=== PATIENT | male | born 1965 | race American Indian/Alaskan Native ===

== ENCOUNTER 2018-07-16 14:43 | Inpatient (IN) | payer MEDICAID, OTHER ==
[2018-07-16 16:30] LABS: BASO # 0.1 K/uL (0.0-0.2); EOS # 0.1 K/uL (0.0-0.7); EOS % 1.5 % (0.0-4.0); HEMOGLOBIN 14.4 g/dL (12.0-18.0); LYMPH # 1.9 K/uL (1.0-4.3); LYMPH % 34.3 % (20.0-40.0); MEAN CELL VOLUME 89.1 fL (80.0-94.0); MEAN CORPUSCULAR HEMOGLOBIN 29.1 pg (27.0-31.0); MEAN CORPUSCULAR HGB CONC 32.7 g/dL (33.0-37.0); MEAN PLATELET VOLUME 9.8 fL (7.2-11.7); MONO # 0.5 K/uL (0.0-0.8); MONO % 9.8 % (0.0-10.0); NEUT # 2.9 K/uL (1.8-7.0); NEUT % 53.4 % (50.0-75.0); RBC 4.96 Mil/uL (4.40-5.90); RED CELL DISTRIBUTION WIDTH 13.8 % (11.5-14.5); WHITE BLOOD COUNT 5.4 K/uL (4.8-10.8)
[2018-07-16 16:45] LABS: ALB/GLOB RATIO 1.4 (1.0-2.1); ALBUMIN 4.6 g/dL (3.5-5.0); ALT/SGPT 20 U/L (21-72); AST/SGOT 40 U/L (17-59); BLOOD UREA NITROGEN 13 mg/dL (9-20); CALCIUM 9.6 mg/dl (8.6-10.4); GFR NON-AFRICAN AMERICAN > 60
[2018-07-16 18:04] LABS: URINE BILIRUBIN NEGATIVE (NEGATIVE); URINE BLOOD NEGATIVE (NEGATIVE); URINE CLARITY Clear (Clear); URINE COLOR Yellow (YELLOW); URINE GLUCOSE (UA) NORMAL (Normal); URINE LEUKOCYTE ESTERASE NEG Leu/uL (Negative); URINE PROTEIN NEGATIVE (NEGATIVE); URINE UROBILINOGEN NORMAL mg/dL (0.2-1.0)
--- NOTE | 2018-07-16 18:12 | C.PDOC ---
History Of Present Illness 53 y/o male comes in requesting detox from heroin. States he last used 14 bags 23 hours ago. Patient also occasionally use cocaine and smokes cigarettes. Patient has no physical complaints at this time. Chief Complaint (Nursing): Substance Abuse History Per: Patient History/Exam Limitations: no limitations Onset/Duration Of Symptoms: Days Current Symptoms Are (Timing): Still Present Past Medical History Reviewed: Historical Data, Nursing Documentation, Vital Signs Vital Signs: Last Vital Signs Temp 97.9 F 07/16/18 15:11 Pulse 74 07/16/18 15:11 Resp 18 07/16/18 15:11 BP 131/90 07/16/18 15:11 Pulse Ox 93 L 07/16/18 15:11 - Medical History PMH: HTN Denies: Diabetes, Hepatitis, HIV, Seizures, Sexually Transmitted Disease - [facility] Procedures DETOXIFICATION SERVICES FOR SUBSTANCE ABUSE TREATMENT (10/10/15) Family History: States: No Known Family Hx - Social History Hx Tobacco Use: Yes Hx Alcohol Use: Yes Hx Substance Use: Yes - Immunization History Hx Tetanus Toxoid Vaccination: Yes Hx Influenza Vaccination: Yes Hx Pneumococcal Vaccination: Yes Review Of Systems Except As Marked, All Systems Reviewed And Found Negative. Constitutional: Negative for: Fever, Chills Gastrointestinal: Negative for: Nausea, Vomiting Psych: Positive for: Other (heroin abuse) Physical Exam - Physical Exam Appears: Non-toxic, No Acute Distress Skin: Warm, Dry Head: Atraumatic, Normacephalic Eye(s): bilateral: Normal Inspection Oral Mucosa: Moist Neck: Supple Cardiovascular: Rhythm Regular, No Murmur Respiratory: Normal Breath Sounds, No Rales, No Rhonchi, No Wheezing Gastrointestinal/Abdominal: Soft, No Tenderness Extremity: Bilateral: Atraumatic, Normal Color And Temperature, Normal ROM Neurological/Psych: Oriented x3, Normal Speech ED Course And Treatment - Laboratory Results Result Diagrams: 07/16/18 16:22 07/16/18 16:22 Lab Results: Total Bilirubin 0.6 mg/dL (0.2-1.3) 07/16/18 16:22 AST 40 U/L (17-59) 07/16/18 16:22 ALT 20 U/L (21-72) L D 07/16/18 16:22 Alkaline Phosphatase 100 U/L (38-126) 07/16/18 16:22 Total Protein 7.9 g/dL (6.3-8.3) 07/16/18 16:22 Albumin 4.6 g/dL (3.5-5.0) 07/16/18 16:22 Globulin 3.3 gm/dL (2.2-3.9) 07/16/18 16:22 Albumin/Globulin Ratio 1.4 (1.0-2.1) 07/16/18 16:22 Urine Color Yellow (YELLOW) 07/16/18 17:46 Urine Clarity Clear (Clear) 07/16/18 17:46 Urine pH 6.0 (5.0-8.0) 07/16/18 17:46 Ur Specific [place] 1.018 (1.003-1.030) 07/16/18 17:46 Urine Protein Negative mg/dL (NEGATIVE) 07/16/18 17:46 Urine Glucose (UA) Normal mg/dL (Normal) 07/16/18 17:46 Urine Ketones Negative mg/dL (NEGATIVE) 07/16/18 17:46 Urine Blood Negative (NEGATIVE) 07/16/18 17:46 Urine Nitrate Negative (NEGATIVE) 07/16/18 17:46 Urine Bilirubin Negative (NEGATIVE) 07/16/18 17:46 Urine Urobilinogen Normal mg/dL (0.2-1.0) 07/16/18 17:46 Ur Leukocyte Esterase Neg Alicia/uL (Negative) 07/16/18 17:46 Urine WBC (Auto) 1 /hpf (0-5) 07/16/18 17:46 Urine RBC (Auto) 2 /hpf (0-3) 07/16/18 17:46 O2 Sat by Pulse Oximetry: 93 (RA) Pulse Ox Interpretation: Abnormal Medical Decision Making Medical Decision Making: Plan: --Labs --UA Patient is medically cleared. Disposition - Disposition Disposition Time: 19:00 Condition: STABLE Forms: [facility] [employer] [facility] (Tristanian) - Clinical Impression Clinical Impression: Drug abuse, Opiate dependence - Scribe Statement The provider has reviewed the documentation as recorded by the Rafael Lockhart Provider Attestation: All medical record entries made by the Scribe were at my direction and personall y dictated by me. I have reviewed the chart and agree that the record accurately reflects my personal performance of the history, physical exam, medical decision making, and the department course for this patient. I have also personally directed, reviewed, and agree with the discharge instructions and disposition.
[2018-07-16 19:41] LABS: BARBITURATES, UR NEGATIVE (NEGATIVE); BENZODIAZEPINES, UR NEGATIVE (NEGATIVE); OPIATES, UR POSITIVE (NEGATIVE); PHENCYCLIDINE, UR NEGATIVE (NEGATIVE)
--- NOTE | 2018-07-16 20:34 | PCM.BM ---
Treatment Plan Problems - Problems identified on initial assessmt anxiety related to substance use Date Initiated: 07/16/18 Time Initiated: 20:32 Assessment reference: NA Status: Active knowledge deficit alcohol use Date Initiated: 07/16/18 Time Initiated: 20:34 Assessment reference: NA Status: Active low motivation to change Date Initiated: 07/16/18 Time Initiated: 20:34 Assessment reference: NA Treatment assets and liabiliti Patient Assests: adapts well, cooperative, ADL independent, cognitively intact Patient Liabilities: substance abuse, medical problems - Milieu Protocol Maintain good personal hygiene: daily Encourage regular showers, daily Remind patient to perform daily oral care, daily Assist patient to perform ADL's Conduct patient checks and document Observation sheet: Q15 minutes Maintain personal safety: every shift Educate patient to report safety concerns to staff, every shift Monitor environment for contraband/sharps Medication safety: Monitor for expected outcome, potential side effects: every shift, Assess barriers to learning: every shift, Assess readiness for medication education: every shift
[2018-07-16] MEDS ORDERED: Aluminum Hydroxide/Magnesium Hydroxide Susp (30 mL) PO PRN (21:50)
[2018-07-17] MEDS: Multiple Vitamins Tab PO SCH (10:02)
--- NOTE | 2018-07-17 10:14 | PCM.PSYCH ---
Initial Psychiatric Evaluation - Initial Psychiatric Evaluation Type of Admission: Voluntary Legal Status: Capacity History of Present Illness and Precipitating Events: Pt is seen, chart reviewed and case discussed. 53 y/o single unemployed male. Pt has 4 adult children and lives with his niece. Pt is currently detoxing from heroin. States that he sniff 8 bags per day. He last used yesterday. He has been to detox at [facility] once before. Pt has been admitted to detox 4-5 times, but has never been to rehab. His longest sobriety 5 years. He has been on methadone 5 mg in the past. In previous notes that pt states that he started cocaine in his 20's and that he was doing 10- 30 mg of perococet? twice a day. States that would like to come of methadone completely after detox. Psych HX: Denies Fam Psych Hx: Denies Medical Hx: CAD s/p CABG, HTN, BPH Medication: Lisinopril Social: Cocaine, 10 cigarettes per day for 30 years Trauma: Denies Current Medications: Active Medications Generic Name Dose Route Start Last Admin Trade Name Freq PRN Reason Stop Dose Admin Al Hydrox/Mg Hydrox/Simethicone 30 ml 07/16/18 21:50 Maalox 30 Ml PO TID PRN Indigestion / Heartburn Chlordiazepoxide 25 mg 07/16/18 21:56 07/16/18 22:11 Librium PO 25 mg Q4H PRN Administration Alcohol Withdrawal Chlordiazepoxide 25 mg 07/17/18 10:00 07/17/18 10:02 Librium PO 07/22/18 09:59 25 mg Q6 ANDREW Administration Taper Clonidine HCl 0.1 mg 07/16/18 21:50 07/16/18 22:11 Catapres PO 0.1 mg Q4 PRN Administration COWS Score More or Equal to 5 Folic Acid 1 mg 07/17/18 10:00 Folic Acid PO DAILY ANDREW Gabapentin 300 mg 07/17/18 10:00 07/17/18 10:02 Neurontin PO 300 mg BID ANDREW Administration Hydroxyzine HCl 50 mg 07/16/18 21:53 07/16/18 22:10 Atarax PO 50 mg Q6H PRN Administration Anxiety Ibuprofen 600 mg 07/16/18 21:50 Motrin Tab PO Q6 PRN Pain, moderate (4-7) Loperamide HCl 2 mg 07/16/18 21:50 Imodium PO Q8 PRN Diarrhea Methadone HCl 20 mg 07/17/18 10:00 07/17/18 10:02 Methadone PO 07/21/18 09:59 20 mg Q24H ANDREW Administration Taper Multivitamins 1 tab 07/17/18 10:00 07/17/18 10:02 Hexavitamin PO 1 tab DAILY ANDREW Administration Ondansetron HCl 4 mg 07/16/18 21:50 Zofran Tab PO Q8 PRN Nausea/Vomiting Thiamine HCl 100 mg 07/17/18 10:00 07/17/18 10:02 Vitamin B1 Tab PO 100 mg DAILY ANDREW Administration Trazodone HCl 100 mg 07/16/18 21:53 07/16/18 22:11 Desyrel PO 100 mg HS PRN Administration Insomnia Past Psychiatric History - Past Psychiatric History Pertinent Medical Hx (Current Medical&Sleep Prob, Allergies): Allergies Allergy/AdvReac Type Severity Reaction Status Date / Time No Known Allergies Allergy Verified 10/10/15 14:31 Aspirin [Ecotrin] 81 mg PO DAILY 10/07/15 Cholecalciferol (Vitamin D3) [Vitamin D3] 2,000 unit PO DAILY 10/07/15 Clopidogrel [Plavix] 75 mg PO DAILY 10/07/15 Furosemide [Lasix] 40 mg PO DAILY 10/07/15 Metoprolol Succinate XL [Toprol XL] 50 mg PO DAILY 10/07/15 Potassium Chloride 8 meq PO DAILY 10/07/15 Simvastatin 20 mg PO HS 10/07/15 Tamsulosin [Flomax] 0.4 mg PO DAILY 10/07/15 Nicotine 21 mg/24 hr [Nicoderm Cq] 1 patch TD DAILY #30 patch 10/14/15 hydrOXYzine HCl [Atarax] 25 mg PO Q4H PRN #30 tab 10/14/15 traZODone [Desyrel] 100 mg PO HS PRN #30 tab 10/14/15
[2018-07-18 09:34] VITALS: RESP 18
[2018-07-18] MEDS: Multiple Vitamins Tab PO SCH (10:25)
--- NOTE | 2018-07-18 12:24 | PCM.PYCHPN ---
Psychiatric Progress Note - Psychiatric Progress Note Medication Change: Yes Medical Record Reviewed: Yes
[2018-07-18 17:16] VITALS: PULSE 72
[2018-07-18 19:59] VITALS: BP 135/88; TEMP 98; O2SAT 94
--- NOTE | 2018-07-19 11:23 | PCM.PYCHDC ---
Mental Status Examination - Mental Status Examination Orientation: Person, Place, Situation, Time Memory: Intact Mood: Neutral Affect: Constricted Speech: Soft Attention: WNL Concentration: WNL Association: WNL Fund of Knowledge: WNL Formal Thought Process: No Impairment Suicidal Ideation: No Current Homicidal Ideation?: No Discharge Summary - Discharge Note Reason for Hospitalization: 53 y/o single unemployed male. Pt has 4 adult children and lives with his niece. Pt is currently detoxing from heroin. States that he sniff 8 bags per day. He last used yesterday. He has been to detox at [facility] once before. Pt has been admitted to detox 4-5 times, but has never been to rehab. His longest sobriety 5 years. He has been on methadone 5 mg in the past. In previous notes that pt states that he started cocaine in his 20's and that he was doing 10- 30 mg of perococet? twice a day. States that would like to come of methadone completely after detox. Psych HX: Denies Fam Psych Hx: Denies Medical Hx: CAD s/p CABG, HTN, BPH Medication: Lisinopril Social: Cocaine, 10 cigarettes per day for 30 years Trauma: Denies Consultations:: List each consultation separately and include: 1. Reason for request. 2. Findings. 3. Follow-up Summary of Hospital Course include:: 1. Description of specific treatment plan utilized for patients during their course of treatmen. 2. Summarize the time- course for resolution of acute symptoms and/or regressed behaviors. 3. Describe issues identified and worked on during hospitalization. 4. Describe medication utilized. 5. Describe medical problems identified and treated. 6. Reassessment of suicide risk - Final Diagnosis (DSM 5) Condition upon Discharge: FAIR Disposition: HOME/ ROUTINE
== END 2018-07-19 10:04 | disposition home or self-care (01) | DRG 745 ==
LOC: C.ER 14:43 → C.7D 20:07
PROVIDERS: ADMIT Psychiatry & Neurology Psychiatry; ATTEND Psychiatry & Neurology Psychiatry
DX: F11.20 Opioid dependence, uncomplicated (principal); I10 Essential (primary) hypertension; F17.210 Nicotine dependence, cigarettes, uncomplicated; I25.10 Atherosclerotic heart disease of native coronary artery without angina pectoris; N40.0 Benign prostatic hyperplasia without lower urinary tract symptoms; Z95.1 Presence of aortocoronary bypass graft; F14.10 Cocaine abuse, uncomplicated